=== PATIENT | male | born 1980 | race American Indian/Alaskan Native ===

== ENCOUNTER 2017-06-02 01:10 | Emergency (ER) | payer OTHER ==
[~2017-06-02] VITALS: Ht 182.9 cm; Wt 113.4 kg
[~2017-06-02 01:10] MED LIST: CEPHALEXIN500 MG PO; IBUPROFEN800 MG PO; KEFLEX500 MG PO; NORCO 5-325 TA1 EACH PO
[2017-06-02] MEDS ORDERED: KEFLEX500 MG PO (02:29)
== END 2017-06-02 02:50 | disposition home or self-care (01) ==
LOC: ED 01:10
DX: S51.012A Laceration without foreign body of left elbow, initial encounter (principal); L08.9 Local infection of the skin and subcutaneous tissue, unspecified; F17.200 Nicotine dependence, unspecified, uncomplicated; W01.0XXA Fall on same level from slipping, tripping and stumbling without subsequent striking against object, initial encounter
CPT/HCPCS: 73080; 99283

== ENCOUNTER 2024-01-07 03:11 | Emergency (ER) | payer OTHER ==
[~2024-01-07] VITALS: Ht 182.9 cm; Wt 106.6 kg
--- OUTSIDE RECORDS SUMMARY | 2024-01-07 03:17 | XMS ---
PreManage Notification: DAVID RAMIREZ [employer] Events No recent Security Events currently on file CRITERIA MET - [facility] - 2 Visits in 30 Days CARE PROVIDERS There are no care providers on record at this time. Eric has no Care Guidelines for this patient. [facility] MO[facility] NOTE: Visits indicate total known visits. ED/[facility] VISIT TRACKING (12 MO.) [facility] COMPLAINT: - ANEXITY 12/30/2023 13:[address] [facility] TYPE: Emergency COMPLAINT: - NUMBNESS DIAGNOSES: - Alcohol abuse with intoxication, unspecified - Nicotine dependence, unspecified, uncomplicated - Other stimulant abuse, uncomplicated INPATIENT VISIT TRACKING (12 MO.) No inpatient visits to display in this time frame [email or web address]
[2024-01-07 03:20] VITALS: BP 149/91
== END 2024-01-07 03:25 | disposition home or self-care (01) ==
LOC: ED 03:11
DX: F15.10 Other stimulant abuse, uncomplicated (principal); F17.200 Nicotine dependence, unspecified, uncomplicated; Z59.00 Homelessness unspecified
CPT/HCPCS: 99283

== ENCOUNTER 2024-01-07 23:44 | Emergency (ER) | payer OTHER ==
[~2024-01-07] VITALS: Ht 182.9 cm; Wt 106.6 kg
--- OUTSIDE RECORDS SUMMARY | 2024-01-07 23:52 | XMS ---
PreManage Notification: DAVID RAMIREZ [employer] Events No recent Security Events currently on file CRITERIA MET - [facility] - 2 Visits in 30 Days CARE PROVIDERS There are no care providers on record at this time. Eirc has no Care Guidelines for this patient. [facility] MO[facility] NOTE: Visits indicate total known visits. ED/[facility] VISIT TRACKING (12 MO.) 01/07/2024 23:[address] [facility] TYPE: Emergency COMPLAINT: - FOOT PAIN 01/07/2024 03:12 [facility] TYPE: Emergency COMPLAINT: - ANXIETY 12/30/2023 13:16 [facility] TYPE: Emergency COMPLAINT: - NUMBNESS DIAGNOSES: - Alcohol abuse with intoxication, unspecified - Nicotine dependence, unspecified, uncomplicated - Other stimulant abuse, uncomplicated INPATIENT VISIT TRACKING (12 MO.) No inpatient visits to display in this time frame [email or web address]
[2024-01-08 00:26] LABS: BASOPHILS 0.4 % (0-2); EOSINOPHILS 1.6 % (0-6); HEMATOCRIT 33.9 % (35.0-50.0); HEMOGLOBIN 11.8 g/dL (12.0-18.0); LYMPHOCYTES 6.8 % (24-44); MCH 29.8 (27-36); MCHC 34.7 g/dl (30-36); MCV 85.8 fl (81-99); MONOCYTES 10.2 % (0-12); PLATELET COUNT 301 K/uL (140-440); RBC 3.95 M/ul (4.3-5.7); RDW 14.4 (10.5-15.0)
[2024-01-08 00:36] LABS: BILIRUBIN, URINE NEGATIVE (negative); BLOOD/HGB, URINE NEGATIVE (Negative); KETONE, URINE TRACE (Negative); LEUK ESTERASE, URINE NEGATIVE (negative); NITRITE, URINE NEGATIVE (negative); PH, URINE 6.5 (5-7)
[2024-01-08 00:50] LABS: ACETAMINOPHEN 0 ug/mL (10-30); ALBUMIN/GLOBULIN RATIO 0.79 (1.1-2.4); ALCOHOL, MEDICAL 4 ng/dL (<3); ALKALINE PHOSPHATASE 60 U/L (46-116); ALT (SGPT) 50 U/L (14-59); ANION GAP 13.5 (7-21); AST (SGOT) 52 U/L (15-37); BUN/CREATININE RATIO 12.65 (6.0-28.6); CALCIUM 8.2 mg/dL (8.5-10.1); CARBON DIOXIDE 27 mmol/L (21-32); CHLORIDE 99 mmol/L (98-107); CREATININE, SERUM 0.79 mg/dL (0.70-1.30); GLOMERULAR FILTRATION RATE,EST 114 mL/min (>60); POTASSIUM 3.5 mmol/L (3.5-5.1); PROTEIN, TOTAL 6.8 g/dL (6.4-8.2); SALICYLATE 0.6 mg/dL (2.8-20.0); TSH, 3RD GENERATION 1.561 uIU/mL (0.358-3.740); UREA NITROGEN 10 mg/dL (7-18)
[2024-01-08 00:51] LABS: AMPHETAMINES, URINE POSITIVE (NEGATIVE); BARBITURATES, URINE NEGATIVE (NEGATIVE); BENZODIAZEPINE, URINE NEGATIVE (NEGATIVE); BUPRENORPHINE, URINE NEGATIVE (NEGATIVE); CANNABINOID, URINE POSITIVE (NEGATIVE); COCAINE, URINE NEGATIVE (NEGATIVE); ECSTASY, URINE NEGATIVE (NEGATIVE); FENTANYL, URINE NEGATIVE (NEGATIVE); METHADONE, URINE NEGATIVE (NEGATIVE); OPIATES, URINE NEGATIVE (NEGATIVE); OXYCODONE, URINE NEGATIVE (NEGATIVE); PHENCYCLIDINE, URINE NEGATIVE (NEGATIVE)
[2024-01-08 01:52] VITALS: BP 125/69
== END 2024-01-08 01:54 | disposition home or self-care (01) ==
LOC: ED 23:44
PROVIDERS: Internal Medicine
DX: S90.415A Abrasion, left lesser toe(s), initial encounter (principal); S90.414A Abrasion, right lesser toe(s), initial encounter; S90.822A Blister (nonthermal), left foot, initial encounter; S90.821A Blister (nonthermal), right foot, initial encounter; Z59.00 Homelessness unspecified; F17.200 Nicotine dependence, unspecified, uncomplicated; X58.XXXA Exposure to other specified factors, initial encounter
CPT/HCPCS: 36415; 80053; 80307; 81003; 84443; 85025; 99283; G0480; U0002